=== PATIENT | female | born 1950 | race African-American/Black ===

== ENCOUNTER 2021-07-16 06:09 | Inpatient (IN) ==
[2021-07-12 12:33] LABS: Basophils % 0.5 % (0.0-0.8); Eosinophils # 0.1 10*3/uL (0.0-0.87); Eosinophils % 0.9 % (0.00-10.9); Hematocrit 39.3 VOL% (35.7-47.0); Hemoglobin 13.1 GM/DL (12.0-16.0); Immature Granulocytes % 0.3 %; Immature Granulocytes Absolute 0.02 #; Lymphocytes # 2.2 10*3/uL (1.4-4.0); Lymphocytes % 37.7 % (21.3-54.2); Mean Corpuscular HGB Conc 33.3 GM/DL (32-36); Mean Corpuscular Volume 81.7 FL (87-102); Mean Platelet Volume 10.7 FL (9.6-12.0); Neutrophils % 52.6 % (38.7-73.9); Platelet Count 191 T/CUMM (130-400); Red Blood Count 4.81 MC/CUMM (3.8-5.5); Red Cell Distribution Width 15.7 % (9.3-17.3); White Blood Count 5.8 T/CUMM (4-12)
[2021-07-12 12:48] LABS: Calcium 9.6 MG/DL (8.5-10.1); Osmolality,Calculated 277.5 MOS/KG (273-304); Potassium 3.7 MMOL/L (3.5-5.1)
[~2021-07-16 06:09] MED LIST: ALVIMOPAN 12 MG CAPSULE PO ONE; DEXAMETHASONE 4 MG/1 ML VIAL ONE; DEXMEDETOMIDINE 200 MCG/2 ML VIAL ONE; ERTAPENEM 1,000 MG in SODIUM CHLORIDE 0.9% 100 ML IV ONE; LIDOCAINE 1% 5 ML VIAL ONE; LIDOCAINE 2% 5 ML VIAL ONE; ONDANSETRON 4 MG/2 ML VIAL ONE; ROCURONIUM 50 MG/5 ML VIAL IV ONE; ROPIVACAINE 0.5% 30 ML VIAL ONE; fentaNYL 100 MCG/2 ML VIAL ONE; propofoL 200 MG/20 ML VIAL IV ONE
[2021-07-16] MEDS ORDERED: SCOPOLAMINE 1.5 MG PATCH TRANSDERM ONE (06:18)
[2021-07-16] MEDS ORDERED: FAMOTIDINE 20 MG TABLET PO ONE (06:18)
[2021-07-16] MEDS ORDERED: DIAZEPAM 5 MG TABLET ONE (06:23)
[2021-07-16] MEDS ORDERED: DIAZEPAM 5 MG TABLET PO ONE (06:30)
[2021-07-16] MEDS ORDERED: TISSUE ADHESIVE 1 EACH APPLICATOR TOP ONE (06:36)
[2021-07-16] MEDS: LACTATED RINGERS 1,000 ML IV SCH ×3 (06:56→11:19)
[2021-07-16] MEDS ORDERED: ACETAMINOPHEN INJ 1,000 MG/100 ML VIAL IV ONE (07:37)
[2021-07-16] MEDS ORDERED: GLYCOPYRROLATE 0.4 MG/2 ML VIAL ONE ×2 (07:53→09:03)
[2021-07-16] MEDS ORDERED: SEVOFLURANE 1 UNIT/15 MINUTE INH ONE (07:53)
[2021-07-16] MEDS ORDERED: INDOCYANINE GREEN 25 MG VIAL IV ONE (07:59)
[2021-07-16] MEDS ORDERED: LACTATED RINGERS 1,000 ML IV ONE (08:39)
[2021-07-16] MEDS ORDERED: PHENYLEPHRINE 1 MG/10 ML SYRINGE IV ONE ×2 (08:43)
[2021-07-16] MEDS ORDERED: NEOSTIGMINE 10 MG/10 ML VIAL ONE (09:03)
[2021-07-16] MEDS ORDERED: ONDANSETRON 4 MG/2 ML VIAL IV PRN ×2 (09:41→10:34)
[2021-07-16] MEDS ORDERED: HYDROmorphone 2 MG/1 ML VIAL ONE (09:44)
[2021-07-16] MEDS ORDERED: ONDANSETRON 4 MG/2 ML VIAL ONE (09:44)
[2021-07-16] MEDS: HYDROmorphone 2 MG/1 ML VIAL IV PRN ×6 (09:45→22:01)
[2021-07-16] MEDS ORDERED: diphenhydrAMINE CAP 25 MG CAPSULE PO PRN (10:34)
[2021-07-16] MEDS ORDERED: tiZANidine 4 MG TABLET PO PRN (10:34)
[2021-07-16 10:51] LABS: Basophils % 0.3 % (0.0-0.8); Eosinophils % 0.1 % (0.00-10.9); Hematocrit 36.7 VOL% (35.7-47.0); Hemoglobin 12.1 GM/DL (12.0-16.0); Immature Granulocytes % 0.3 %; Immature Granulocytes Absolute 0.02 #; Lymphocytes # 1.1 10*3/uL (1.4-4.0); Lymphocytes % 15.6 % (21.3-54.2); Mean Corpuscular Volume 83.8 FL (87-102); Mean Platelet Volume 10.2 FL (9.6-12.0); Monocytes % 3.1 % (1.7-12.7); Neutrophils % 80.6 % (38.7-73.9); Platelet Count 163 T/CUMM (130-400); Red Blood Count 4.38 MC/CUMM (3.8-5.5); White Blood Count 6.7 T/CUMM (4-12)
[2021-07-16 11:09] LABS: Calcium 8.5 MG/DL (8.5-10.1); Osmolality,Calculated 282.3 MOS/KG (273-304); Potassium 3.8 MMOL/L (3.5-5.1)
[2021-07-16] MEDS: KETOROLAC 30 MG/1 ML VIAL IV SCH ×2 (11:19→17:09)
[2021-07-16] MEDS: CALCIUM (CARBONATE) 500 MG TABLET PO SCH (17:10)
[2021-07-16] MEDS: MAGNESIUM OXIDE 400 MG TABLET PO SCH (20:28)
[2021-07-16] MEDS: ALVIMOPAN 12 MG CAPSULE PO SCH (20:28)
[2021-07-16] MEDS: METHOCARBAMOL 750 MG TABLET PO SCH (20:28)
[2021-07-16] MEDS: POLYCARBOPHIL 625 MG TABLET PO SCH (20:29)
[2021-07-17] MEDS: KETOROLAC 30 MG/1 ML VIAL IV SCH ×2 (00:35→05:27)
[2021-07-17] MEDS: LACTATED RINGERS 1,000 ML IV SCH (00:39)
[2021-07-17 05:41] LABS: Basophils % 0.3 % (0.0-0.8); Eosinophils % 0.2 % (0.00-10.9); Hematocrit 32.7 VOL% (35.7-47.0); Hemoglobin 10.8 GM/DL (12.0-16.0); Immature Granulocytes % 0.3 %; Immature Granulocytes Absolute 0.03 #; Lymphocytes # 2.4 10*3/uL (1.4-4.0); Lymphocytes % 21.2 % (21.3-54.2); Mean Corpuscular Volume 82.6 FL (87-102); Mean Platelet Volume 10.6 FL (9.6-12.0); Monocytes % 6.8 % (1.7-12.7); Neutrophils % 71.2 % (38.7-73.9); Platelet Count 169 T/CUMM (130-400); Red Blood Count 3.96 MC/CUMM (3.8-5.5); Red Cell Distribution Width 15.9 % (9.3-17.3); White Blood Count 11.1 T/CUMM (4-12)
[2021-07-17 06:04] LABS: Calcium 8.6 MG/DL (8.5-10.1); Osmolality,Calculated 277.4 MOS/KG (273-304); Potassium 3.7 MMOL/L (3.5-5.1)
[2021-07-17] MEDS: METHOCARBAMOL 750 MG TABLET PO SCH (08:11)
[2021-07-17] MEDS: CALCIUM (CARBONATE) 500 MG TABLET PO SCH (08:11)
[2021-07-17] MEDS: POLYCARBOPHIL 625 MG TABLET PO SCH (08:11)
[2021-07-17] MEDS: MAGNESIUM OXIDE 400 MG TABLET PO SCH (08:11)
[2021-07-17] MEDS: ALVIMOPAN 12 MG CAPSULE PO SCH (08:11)
[2021-07-17 08:29] VITALS: BP 121/52
[2021-07-17] MEDS ORDERED: NON-FORMULARY MEDICATION (Vitamin K2 100 mcg Capsule) PO SCH (09:00)
[2021-07-17] MEDS ORDERED: CHOLECALCIFEROL 1,000 UNIT TABLET PO SCH (09:00)
[2021-07-17] MEDS ORDERED: OMEGA 3 ACID ETHYL ESTERS 1 GM CAPSULE PO SCH (09:00)
[2021-07-17] MEDS ORDERED: MULTIVITAMIN (CENTRUM) TABLET PO SCH (09:00)
[2021-07-17] MEDS ORDERED: NON-FORMULARY MEDICATION (Turmeric Root Extract 500 mg Capsule) PO SCH (09:00)
[2021-07-17] MEDS ORDERED: ENOXAPARIN 40 MG/0.4 ML SYRINGE SUBCUT SCH (09:00)
== END 2021-07-17 10:31 | disposition home or self-care (01) | DRG 331 ==
LOC: N.OR 06:09 → N.SDSINP 06:16 → N.3E 10:02
PROVIDERS: ADMIT Surgery; ATTEND Surgery